=== PATIENT | male | born 1980 | race Asian ===

== ENCOUNTER 2020-08-19 15:28 | Emergency (ER) | payer SELFPAY ==
[~2020-08-19] VITALS: Ht 162.6 cm; Wt 57.6 kg
[2020-08-19 15:30] VITALS: BP 109/77
--- NOTE | 2020-08-19 15:49 | NUR ---
AT BEDSIDE FOR EVAL.
--- NOTE | 2020-08-19 15:57 | NUR ---
Patient discharged to home in stable condition. Written and verbal after care instructions given. Patient verbalizes understanding of instruction.
== END 2020-08-19 16:01 | disposition home or self-care (01) ==
LOC: ER 15:33
DX: R55 Syncope and collapse (principal)